=== PATIENT | female | born 1980 | race African-American/Black ===

== ENCOUNTER 2023-03-28 09:39 | Emergency (ER) | payer OTHER ==
[~2023-03-28 09:39] MED LIST: ANAPROX DS550 MG PO; BACTRIM DS 8001 TA1 PO; CIPRO500 MG PO; FLEXERIL10 MG PO; MOTRIN800 MG PO; NAPROSYN500 MG PO; NKHM; PERCOCET 325 MG1 TA5 PO; PERCOCET 325 MG1 TA6; PERCOCET 325 MG1 TA7 PO; SEPTRA DS 800 M1 TAB PO; VICODIN 500 MG-1 TAB PO; ZOFRAN4 MG PO; ZYRTEC10 MG PO
[2023-03-28 10:31] LABS: BASO % 0.6 % (0.0-1.0); EOS # 0.2 10*3/uL (0.0-0.4); EOS % 2.7 % (1.0-4.0); HEMATOCRIT 43.9 % (37.0-47.0); LYMPH # 2.5 10*3/uL (1.3-4.4); LYMPH % 35.2 % (27.0-41.0); MEAN CELL VOLUME 88.5 fl (81.0-99.0); MEAN CORPUSCULAR HGB 28.8 pg (27.0-31.0); MEAN CORPUSCULAR HGB CONC 32.6 g/dl (33.0-37.0); MONO # 0.5 10*3/uL (0.1-1.0); MONO % 7.6 % (3.0-9.0); NEUT # 3.8 10*3/uL (2.3-7.9); NEUT % 53.8 % (47.0-73.0); PLATELET COUNT AUTOMATED 250 10*3/uL (130-400); RED BLOOD COUNT 4.96 10*6/uL (4.10-5.10); RED CELL DISTRI WIDTH 20.9 % (0-14.5)
[2023-03-28 10:48] LABS: ACT PARTIAL THROMBO TIME 25.1 SECONDS (20.0-32.1)
[2023-03-28 11:02] LABS: ALKALINE PHOSPHATASE 66 U/L (46-116); BUN 7 mg/dl (9-23); CHLORIDE 107 mmol/L (98-107); POTASSIUM 3.9 mmol/L (3.4-5.1); SGPT/ALT 13 U/L (10-49); TOTAL PROTEIN 8.1 gm/dL (6.0-8.0)
[2023-03-28 12:06] VITALS: BP 130/90
[2023-03-28] MEDS ORDERED: MELOXICAM15 MG PO (14:01)
== END 2023-03-28 12:28 | disposition home or self-care (01) ==
LOC: ED 09:39
PROVIDERS: Emergency Medicine
DX: R07.89 Other chest pain (principal); D64.9 Anemia, unspecified; Z90.89 Acquired absence of other organs; Z98.51 Tubal ligation status; Z98.890 Other specified postprocedural states

== ENCOUNTER → 2023-06-09 | Outpatient (CLI) | payer OTHER ==
[~2023-06-09] MED LIST changes: +MELOXICAM15 MG PO
== END | disposition home or self-care (01) ==
LOC: MAMMO 08:31
PROVIDERS: ATTEND Internal Medicine Nephrology
DX: Z12.31 Encounter for screening mammogram for malignant neoplasm of breast (principal)

== ENCOUNTER 2025-07-19 19:34 | Emergency (ER) | payer OTHER ==
[~2025-07-19] VITALS: Ht 162.5 cm; Wt 61.2 kg
[2025-07-19 20:02] VITALS: BP 123/55
[2025-07-19 20:50] LABS: BASO # 0.1 10*3/uL (0.0-0.1); BASO % 0.7 % (0.0-1.0); EOS # 0.2 10*3/uL (0.0-0.4); EOS % 2.0 % (1.0-4.0); MEAN CELL VOLUME 65.3 fl (81.0-99.0); MEAN CORPUSCULAR HGB 18.3 pg (27.0-31.0); MEAN PLATELET VOLUME 9.1 fl (9.6-12.3); MONO # 0.9 10*3/uL (0.1-1.0); MONO % 7.2 % (3.0-9.0); NEUT # 8.2 10*3/uL (2.3-7.9); NEUT % 69.8 % (47.0-73.0); NUCLEATED RED BLOOD CELL 0.0 % (0.0-0.0); NUCLEATED RED BLOOD CELL 0.0 10*3/uL (0.0-0.0); PLATELET COUNT AUTOMATED 362 10*3/uL (130-400); RED CELL DISTRI WIDTH 19.6 % (0-14.5)
[2025-07-19] MEDS ORDERED: IOHEXOL 300 MG/ML 100 ML VIAL IV ONE (21:05)
[2025-07-19] MEDS ORDERED: SODIUM CHLORIDE 0.9% 1,000 ML IV ONE (21:05)
[2025-07-19 21:08] LABS: BUN 7 mg/dl (9-23)
[2025-07-19] MEDS ORDERED: IOHEXOL 300 MG/ML 100 ML VIAL ONE (21:31)
[2025-07-19] MEDS ORDERED: SEPTDS PO (23:05)
[2025-07-19] MEDS ORDERED: CEPHALEXIN500 M1 PO (23:05)
[2025-07-19] MEDS ORDERED: CEPHALEXIN 500 MG CAP PO ONE (23:10)
[2025-07-19] MEDS ORDERED: Sulfamethoxazole/Trimethopri 1 TAB TAB PO ONE (23:10)
[2025-07-19] MEDS ORDERED: Bacitracin Zinc 14 GM TUBE T ONE (23:30)
== END 2025-07-19 23:17 | disposition home or self-care (01) ==
LOC: ED 19:34
PROVIDERS: Nurse Practitioner Family
DX: K61.0 Anal abscess (principal); N30.00 Acute cystitis without hematuria; R59.1 Generalized enlarged lymph nodes